=== PATIENT | male | born 1960 | race Caucasian/White ===

== ENCOUNTER 2017-08-27 21:37 | Emergency (ER) | payer MEDICAID, OTHER ==
[~2017-08-27] VITALS: Ht 182.9 cm; Wt 90.0 kg
[~2017-08-27 21:37] MED LIST: DOLU50TA PO; MECL-111 PO; ONDA4 PO; TRUVT PO
[2017-08-27 22:42] LABS: BASOPHILS % (AUTO) 0.8 % (0.0-2.0); EOSINOPHILS % (AUTO) 4.6 % (1.0-6.0); HEMATOCRIT 40.6 % (41-53); HEMOGLOBIN 13.3 g/dL (13.5-17.5); LYMPHOCYTES # (AUTO) 1.8 K/uL (1.0-4.8); LYMPHOCYTES % (AUTO) 41.6 % (22.0-44.0); MEAN CORPUSCULAR HEMOGLOBIN 25.9 pg (26.0-34.0); MEAN CORPUSCULAR HGB CONC 32.7 G/dL (31.0-37.0); MEAN CORPUSCULAR VOLUME 79 fL (80-100); MONOCYTES # (AUTO) 0.3 K/uL (0.1-1.0); MONOCYTES % (AUTO) 5.9 % (2.0-9.0); NEUTROPHILS # (AUTO) 2.1 K/uL (1.8-7.7); NEUTROPHILS % (AUTO) 47.1 % (40.0-70.0); PLATELET COUNT (AUTO) 230 K/uL (150-450); RED BLOOD CELL COUNT(AUTO) 5.12 MIL/uL (4.50-5.90); RED CELL DISTRIBUTION WIDTH 13.7 % (11.5-14.5)
[2017-08-27 22:54] LABS: CALCIUM, TOTAL 8.7 mg/dL (8.8-10.5); CREATININE 1.46 mg/dL (0.60-1.30); POTASSIUM 3.8 mmol/L (3.5-5.1)
[2017-08-27 22:59] LABS: ALBUMIN 3.3 g/dL (3.4-5.0); BILIRUBIN,TOTAL 0.2 mg/dL (0.1-1.0); TOTAL PROTEIN, SERUM 7.1 g/dL (6.4-8.2)
[2017-08-28] MEDS ORDERED: CefTRIAXone SODIUM 2 GM in DEXTROSE 5%-WATER 20 ML IV ONE (00:30)
[2017-08-28] MEDS ORDERED: DOXYCYCLINE 100 MG CAPSULE PO ONE (00:30)
[2017-08-28 02:26] VITALS: BP 145/89
== END 2017-08-28 02:30 | disposition home or self-care (01) ==
LOC: EMS 21:39
DX: L03.115 Cellulitis of right lower limb (principal); F17.210 Nicotine dependence, cigarettes, uncomplicated; Z88.0 Allergy status to penicillin
CPT/HCPCS: 36415; 80053; 83880; 85025; 87040; 93971; 96374; 99285; 99406; J0696; J7060

== ENCOUNTER 2018-02-02 04:25 | Emergency (ER) | payer OTHER ==
[~2018-02-02] VITALS: Ht 182.9 cm; Wt 86.4 kg
[2018-02-02] MEDS ORDERED: EMTR1TAB13 PO (04:45)
[2018-02-02] MEDS ORDERED: ONDANSETRON HCL 4 MG/2 ML VIAL IM ONE (06:30)
[2018-02-02] MEDS ORDERED: FentaNYL CITRATE-PF 100 MCG/2 ML VIAL IM ONE (06:30)
[2018-02-02 07:12] VITALS: BP 146/99
== END 2018-02-02 07:59 | disposition home or self-care (01) ==
LOC: EMS 04:26
DX: K62.3 Rectal prolapse (principal); K64.8 Other hemorrhoids; F17.210 Nicotine dependence, cigarettes, uncomplicated; Z88.0 Allergy status to penicillin
CPT/HCPCS: 96372; 99284; 99406; J2405; J3010

== ENCOUNTER 2019-05-22 16:34 | Emergency (ER) | payer MEDICAID, OTHER ==
[~2019-05-22] VITALS: Ht 182.9 cm; Wt 95.5 kg
[~2019-05-22 16:34] MED LIST changes: +EMTR1TAB13 PO; -ONDA4 PO; -TRUVT PO
[2019-05-22 18:26] LABS: BASOPHILS % (AUTO) 0.4 % (0.0-2.0); EOSINOPHILS % (AUTO) 8.4 % (1.0-6.0); HEMATOCRIT 43.8 % (41-53); HEMOGLOBIN 14.2 g/dL (13.5-17.5); LYMPHOCYTES # (AUTO) 2.2 K/uL (1.0-4.8); MEAN CORPUSCULAR HEMOGLOBIN 25.5 pg (26.0-34.0); MEAN CORPUSCULAR HGB CONC 32.4 G/dL (31.0-37.0); MEAN CORPUSCULAR VOLUME 79 fL (80-100); MONOCYTES # (AUTO) 0.5 K/uL (0.1-1.0); MONOCYTES % (AUTO) 10.5 % (2.0-9.0); NEUTROPHILS % (AUTO) 38.7 % (40.0-70.0); PLATELET COUNT (AUTO) 238 K/uL (150-450); RED BLOOD CELL COUNT(AUTO) 5.55 MIL/uL (4.50-5.90); RED CELL DISTRIBUTION WIDTH 13.6 % (11.5-14.5)
[2019-05-22 18:41] LABS: ANION GAP 7 mmol/L (8-16); CALCIUM, TOTAL 8.8 mg/dL (8.8-10.5); CARBON DIOXIDE 29 mmol/L (22-29); CHLORIDE 104 mmol/L (98-107); CREATININE 1.12 mg/dL (0.60-1.30); GLOMERULAR FILTR. RATE CALC > 60 mL/min (>60); GLUCOSE,RANDOM 88 mg/dL (70-110); POTASSIUM 4.5 mmol/L (3.5-5.1); SODIUM SERUM 140 mmol/L (136-145); UREA NITROGEN, BLOOD 11 mg/dL (7-18)
[2019-05-22 18:46] LABS: ALANINE AMINOTRANSFERASE 25 U/L (12-78); ALBUMIN 3.4 g/dL (3.4-5.0); ALKALINE PHOSPHATASE 62 U/L (46-116); ASPARTATE AMINOTRANSFERASE 18 U/L (15-37); BILIRUBIN,TOTAL 0.2 mg/dL (0.1-1.0); LIPASE 54 U/L (73-393); TOTAL PROTEIN, SERUM 8.4 g/dL (6.4-8.2)
[2019-05-22 18:48] LABS: APPEARANCE,URINE CLEAR (CLEAR); BILIRUBIN,URINE NEGATIVE (NEGATIVE); GLUCOSE, URINE (UA) NEGATIVE (NEGATIVE); KETONES,URINE NEGATIVE (NEGATIVE); LEUKOCYTE ESTERASE ,URINE NEGATIVE (NEGATIVE); NITRATE,URINE NEGATIVE (NEGATIVE); OCCULT BLOOD,URINE NEGATIVE (NEGATIVE); PROTEIN,URINE NEGATIVE (NEGATIVE); UROBILINOGEN,URINE 0.2 mg/dL (<=1.0)
[2019-05-22] MEDS ORDERED: KETOROLAC TROMETHAMINE 30 MG/ML VIAL IVP ONE (19:00)
[2019-05-22] MEDS ORDERED: KETOROLAC TROMETHAMINE 30 MG/ML VIAL IM ONE (19:45)
[2019-05-22 20:37] VITALS: BP 132/90
== END 2019-05-22 21:18 | disposition home or self-care (01) ==
LOC: EMS 16:34
DX: S39.012A Strain of muscle, fascia and tendon of lower back, initial encounter (principal); R39.15 Urgency of urination; F17.210 Nicotine dependence, cigarettes, uncomplicated; Z88.0 Allergy status to penicillin; Z79.899 Other long term (current) drug therapy; X50.9XXA Other and unspecified overexertion or strenuous movements or postures, initial encounter; Y93.89 Activity, other specified; Y92.89 Other specified places as the place of occurrence of the external cause; Y99.8 Other external cause status
CPT/HCPCS: 36415; 74176; 80053; 81003; 83690; 85025; 96372; 99284; J1885

== ENCOUNTER 2019-05-26 20:11 | Emergency (ER) | payer MEDICAID ==
[~2019-05-26] VITALS: Ht 182.9 cm; Wt 104.5 kg
[~2019-05-26 20:11] MED LIST changes: -EMTR1TAB13 PO; -MECL-111 PO
[2019-05-26] MEDS ORDERED: EMTR1TAB15 PO (20:43)
[2019-05-26 21:21] LABS: HEMATOCRIT 41.2 % (41-53); HEMOGLOBIN 13.8 g/dL (13.5-17.5); LYMPHOCYTES # (AUTO) 1.3 K/uL (1.0-4.8); LYMPHOCYTES % (AUTO) 31.4 % (22.0-44.0); MEAN CORPUSCULAR HEMOGLOBIN 26.5 pg (26.0-34.0); MEAN CORPUSCULAR HGB CONC 33.5 G/dL (31.0-37.0); MEAN CORPUSCULAR VOLUME 79 fL (80-100); MONOCYTES # (AUTO) 0.4 K/uL (0.1-1.0); MONOCYTES % (AUTO) 9.4 % (2.0-9.0); NEUTROPHILS # (AUTO) 2.2 K/uL (1.8-7.7); NEUTROPHILS % (AUTO) 54.2 % (40.0-70.0); PLATELET COUNT (AUTO) 243 K/uL (150-450); RED BLOOD CELL COUNT(AUTO) 5.21 MIL/uL (4.50-5.90)
[2019-05-26 21:25] LABS: APPEARANCE,URINE CLOUDY (CLEAR); BILIRUBIN,URINE NEGATIVE (NEGATIVE); GLUCOSE, URINE (UA) NEGATIVE (NEGATIVE); KETONES,URINE NEGATIVE (NEGATIVE); LEUKOCYTE ESTERASE ,URINE NEGATIVE (NEGATIVE); NITRATE,URINE NEGATIVE (NEGATIVE); OCCULT BLOOD,URINE SMALL (NEGATIVE); PROTEIN,URINE TRACE (NEGATIVE); UROBILINOGEN,URINE 0.2 mg/dL (<=1.0)
[2019-05-26 21:37] LABS: BACTERIA,URINE Rare /HPF (None Seen); SQUAMOUS EPITHELIAL CELL,UR Few /LPF (None Seen); WBC,URINE 0-2 /HPF (0-5)
[2019-05-26 21:41] LABS: ANION GAP 6 mmol/L (8-16); CARBON DIOXIDE 27 mmol/L (22-29); CHLORIDE 101 mmol/L (98-107); CREATININE 1.19 mg/dL (0.60-1.30); GLOMERULAR FILTR. RATE CALC > 60 mL/min (>60); GLUCOSE,RANDOM 109 mg/dL (70-110); POTASSIUM 4.2 mmol/L (3.5-5.1); SODIUM SERUM 134 mmol/L (136-145); UREA NITROGEN, BLOOD 16 mg/dL (7-18)
[2019-05-26 21:46] LABS: ALANINE AMINOTRANSFERASE 28 U/L (12-78); ALBUMIN 3.7 g/dL (3.4-5.0); ALKALINE PHOSPHATASE 61 U/L (46-116); ASPARTATE AMINOTRANSFERASE 27 U/L (15-37); BILIRUBIN,TOTAL 0.5 mg/dL (0.1-1.0); TOTAL PROTEIN, SERUM 8.8 g/dL (6.4-8.2)
[2019-05-26 22:38] VITALS: BP 141/100
[2019-05-26] MEDS ORDERED: ASPIRIN 325 MG TABLET PO ONE (23:00)
== END 2019-05-26 23:15 | disposition left against medical advice (07) ==
LOC: EMS 20:12
DX: R07.89 Other chest pain (principal); F17.210 Nicotine dependence, cigarettes, uncomplicated; Z88.0 Allergy status to penicillin; Z79.899 Other long term (current) drug therapy
CPT/HCPCS: 93005; 99406

== ENCOUNTER 2023-05-23 07:51 | Emergency (ER) | payer MEDICAID ==
[~2023-05-23] VITALS: Ht 182.9 cm; Wt 86.4 kg
[~2023-05-23 07:51] MED LIST changes: -DOLU50TA PO; +EMTR1TAB15 PO
[2023-05-23 07:52] VITALS: TEMP 98.7
[2023-05-23] MEDS ORDERED: HIV MEDICATION PO (07:59)
[2023-05-23 08:56] LABS: BASOPHILS % (AUTO) 0.1 % (0.0-2.0); EOSINOPHILS % (AUTO) 0.2 % (1.0-6.0); HEMATOCRIT 38.2 % (41-53); HEMOGLOBIN 12.6 g/dL (13.5-17.5); LYMPHOCYTES # (AUTO) 1.4 K/uL (1.0-4.8); LYMPHOCYTES % (AUTO) 16.6 % (22.0-44.0); MEAN CORPUSCULAR HEMOGLOBIN 26.1 pg (26.0-34.0); MEAN CORPUSCULAR HGB CONC 33.1 G/dL (31.0-37.0); MEAN CORPUSCULAR VOLUME 79 fL (80-100); MONOCYTES # (AUTO) 0.8 K/uL (0.1-1.0); MONOCYTES % (AUTO) 8.9 % (2.0-9.0); NEUTROPHILS # (AUTO) 6.4 K/uL (1.8-7.7); NEUTROPHILS % (AUTO) 74.2 % (40.0-70.0); PLATELET COUNT (AUTO) 206 K/uL (150-450); RED BLOOD CELL COUNT(AUTO) 4.84 MIL/uL (4.50-5.90); RED CELL DISTRIBUTION WIDTH 13.6 % (11.5-14.5); WHITE BLOOD COUNT (AUTO) 8.6 K/uL (4.5-11.0)
[2023-05-23 09:03] LABS: COVID AG,FIA SOURCE NASAL SWAB
[2023-05-23 09:06] LABS: SARS-COV2 (COVID) ANTIGEN,FIA Negative (Negative)
[2023-05-23 09:07] LABS: INFLUENZA TYPE A NEGATIVE FOR TYPE A (NEGATIVE); INFLUENZA TYPE B NEGATIVE FOR TYPE B (NEGATIVE)
[2023-05-23] MEDS ORDERED: KETOROLAC TROMETHAMINE 60 MG/2 ML VIAL IM ONE (10:00)
[2023-05-23] MEDS ORDERED: AZITHROMYCIN 500 MG TABLET PO ONE (10:00)
[2023-05-23 11:31] VITALS: BP 127/76; PULSE 87; RESP 18
[2023-05-23] MEDS ORDERED: IBUP-1492 PO (11:43)
[2023-05-23] MEDS ORDERED: AZIT250T9 PO (11:43)
== END 2023-05-23 12:19 | disposition home or self-care (01) ==
LOC: EMS 07:59
DX: R91.8 Other nonspecific abnormal finding of lung field (principal); R09.1 Pleurisy; F17.210 Nicotine dependence, cigarettes, uncomplicated; Z88.0 Allergy status to penicillin; Z20.822 Contact with and (suspected) exposure to COVID-19
CPT/HCPCS: 99284; 71045; 87426; 85025; 87804; 36415; 96372; J1885; Q9967

== ENCOUNTER → 2024-06-12 | Emergency (ER) | payer MEDICAID ==
[~2024-06-12] VITALS: Ht 183.5 cm; Wt 94.5 kg
[~2024-06-12] MED LIST changes: +DOXY-354 PO; +HIV MEDICATION PO; +IBUP-1492 PO; +htn PO
[2024-06-12 09:41] VITALS: TEMP 98.4
[2024-06-12] MEDS: DOXYCYCLINE HYCLATE 100 MG TABLET PO ONE (10:57)
[2024-06-12 11:48] VITALS: BP 115/75; PULSE 85; RESP 18; O2SAT 100
== END | disposition home or self-care (01) ==
LOC: EMS 09:34
DX: L03.116 Cellulitis of left lower limb (principal); M79.652 Pain in left thigh; Z88.0 Allergy status to penicillin; Z79.624 Long term (current) use of inhibitors of nucleotide synthesis
CPT/HCPCS: 99284; Z7502; Z7610

== ENCOUNTER 2024-07-24 08:07 | Emergency (ER) | payer MEDICAID ==
[~2024-07-24] VITALS: Ht 180.3 cm; Wt 97.7 kg
[~2024-07-24 08:07] MED LIST changes: -IBUP-1492 PO
[2024-07-24 08:28] LABS: COVID AG,FIA SOURCE NASAL SWAB
[2024-07-24 09:07] LABS: INFLUENZA TYPE B NEGATIVE FOR TYPE B (NEGATIVE); SARS-COV2 (COVID) ANTIGEN,FIA Negative (Negative)
[2024-07-24] MEDS: PredniSONE 20 MG TABLET PO ONE (09:10)
[2024-07-24] MEDS: HYDROCODONE/ACETAMINOPHEN 5-325 MG TABLET PO ONE (09:10)
[2024-07-24] MEDS ORDERED: 0.9% SODIUM CHLORIDE 5 ML NEB SOLUTION NEB ONE (09:25)
[2024-07-24 09:30] VITALS: PULSE 73; RESP 20; O2SAT 96
[2024-07-24] MEDS: IPRATROPIUM BROMIDE 0.5 MG/2.5 ML NEB SOLUTION NEB ONE (09:30)
[2024-07-24] MEDS: ALBUTEROL SULFATE 2.5 MG/0.5 ML 5 ML NEB SOLUTION NEB ONE (09:30)
[2024-07-24 09:33] LABS: INFLUENZA TYPE A POSITIVE FOR TYPE A (NEGATIVE)
[2024-07-24 10:45] VITALS: PULSE 75; RESP 20; O2SAT 100
[2024-07-24] MEDS: GuaiFENesin [SUGAR-FREE] 200 MG/10 ML SOLUTION UDCUP PO ONE (11:49)
[2024-07-24 11:56] LABS: BASOPHILS % (AUTO) 0.4 % (0.0-2.0); EOSINOPHILS % (AUTO) 0.3 % (1.0-6.0); HEMATOCRIT 43.7 % (41-53); HEMOGLOBIN 13.9 g/dL (13.5-17.5); LYMPHOCYTES # (AUTO) 1.2 K/uL (1.0-4.8); LYMPHOCYTES % (AUTO) 26.3 % (22.0-44.0); MEAN CORPUSCULAR HEMOGLOBIN 25.8 pg (26.0-34.0); MEAN CORPUSCULAR HGB CONC 31.7 G/dL (31.0-37.0); MEAN CORPUSCULAR VOLUME 81 fL (80-100); MONOCYTES # (AUTO) 0.1 K/uL (0.1-1.0); MONOCYTES % (AUTO) 3.1 % (2.0-9.0); NEUTROPHILS # (AUTO) 3.1 K/uL (1.8-7.7); NEUTROPHILS % (AUTO) 69.9 % (40.0-70.0); PLATELET COUNT (AUTO) 180 K/uL (150-450); RED BLOOD CELL COUNT(AUTO) 5.38 MIL/uL (4.50-5.90); RED CELL DISTRIBUTION WIDTH 14.6 % (11.5-14.5); WHITE BLOOD COUNT (AUTO) 4.4 K/uL (4.5-11.0)
[2024-07-24 12:30] VITALS: BP 122/78; PULSE 71; RESP 14; TEMP 98.2; O2SAT 95
[2024-07-24 12:34] LABS: TROPONIN I-HIGH SENSITIVITY 45 ng/L (<76)
[2024-07-24 12:43] LABS: CALCIUM, TOTAL 8.1 mg/dL (8.8-10.5); CREATININE 1.68 mg/dL (0.60-1.30)
[2024-07-24] MEDS ORDERED: HYDR-4062 PO (12:44)
[2024-07-24] MEDS ORDERED: GUAIFDM PO (12:44)
[2024-07-24] MEDS ORDERED: ALBU18HF12 IH (12:44)
[2024-07-24] MEDS ORDERED: PRED-554 PO (12:44)
== END 2024-07-24 13:06 | disposition home or self-care (01) ==
LOC: EMS 08:08
DX: J18.9 Pneumonia, unspecified organism (principal); J06.9 Acute upper respiratory infection, unspecified; N28.9 Disorder of kidney and ureter, unspecified; I10 Essential (primary) hypertension; R07.89 Other chest pain; F17.210 Nicotine dependence, cigarettes, uncomplicated; Z79.624 Long term (current) use of inhibitors of nucleotide synthesis; Z88.0 Allergy status to penicillin; Z20.822 Contact with and (suspected) exposure to COVID-19
CPT/HCPCS: 99285; 71045; 87426; 80048; 83880; 84484; 85025; 87804; 36415; 94644; 93005; J7512

== ENCOUNTER 2024-11-24 09:28 | Inpatient (IN) | payer MEDICAID ==
[~2024-11-24] VITALS: Ht 182.9 cm; Wt 105.1 kg
[~2024-11-24 09:28] MED LIST changes: +ALBU18HF12 IH; +GUAIFDM PO; +HYDR-4062 PO; +PRED-554 PO
[2024-11-24] MEDS ORDERED: AMLO-257 PO (10:42)
[2024-11-24] MEDS ORDERED: DOLU50TA PO (10:42)
[2024-11-24] MEDS ORDERED: OMEP-148 PO (10:42)
[2024-11-24] MEDS ORDERED: LISI-659 PO (10:42)
[2024-11-24] MEDS ORDERED: EMTR1TAB13 PO (10:42)
[2024-11-24] MEDS: MECLIZINE HCL 25 MG TABLET PO ONE ×2 (10:44→14:35)
[2024-11-24 11:25] LABS: BASOPHILS % (AUTO) 0.8 % (0.0-2.0); EOSINOPHILS % (AUTO) 2.7 % (1.0-6.0); HEMATOCRIT 46.4 % (41-53); HEMOGLOBIN 14.8 g/dL (13.5-17.5); LYMPHOCYTES # (AUTO) 2.3 K/uL (1.0-4.8); LYMPHOCYTES % (AUTO) 39.6 % (22.0-44.0); MEAN CORPUSCULAR HEMOGLOBIN 25.9 pg (26.0-34.0); MEAN CORPUSCULAR HGB CONC 31.9 G/dL (31.0-37.0); MEAN CORPUSCULAR VOLUME 81 fL (80-100); MONOCYTES # (AUTO) 0.3 K/uL (0.1-1.0); MONOCYTES % (AUTO) 6.1 % (2.0-9.0); NEUTROPHILS # (AUTO) 2.9 K/uL (1.8-7.7); NEUTROPHILS % (AUTO) 50.8 % (40.0-70.0); PLATELET COUNT (AUTO) 242 K/uL (150-450); RED BLOOD CELL COUNT(AUTO) 5.71 MIL/uL (4.50-5.90); RED CELL DISTRIBUTION WIDTH 14.9 % (11.5-14.5); WHITE BLOOD COUNT (AUTO) 5.7 K/uL (4.5-11.0)
[2024-11-24 11:35] LABS: CREATININE 1.53 mg/dL (0.60-1.30); POTASSIUM 3.6 mmol/L (3.5-5.1)
[2024-11-24] MEDS: SODIUM CHLORIDE 0.9% 500 ML IV ONE (12:05)
[2024-11-24] MEDS ORDERED: ALBUTEROL SULFATE HFA 90 MCG/PUFF 8 GM INHALER IH PRN (15:15)
[2024-11-24] MEDS: SODIUM CHLORIDE 0.9% 1,000 ML IV ONE ×2 (15:35)
[2024-11-24 16:53] VITALS: BP 125/52; PULSE 68; RESP 18; TEMP 97.9; O2SAT 97
[2024-11-24 19:23] LABS: ALCOHOL, URINE DRUG SCREEN NEGATIVE (NEGATIVE); AMPHET/METH SCREEN,URINE NEGATIVE (NEGATIVE); BARBITURATE SCREEN, URINE NEGATIVE (NEGATIVE); BENZODIAZEPINES SCREEN,URINE NEGATIVE (NEGATIVE); CANNABINOID SCREEN,URINE NEGATIVE (NEGATIVE); COCAINE SCREEN,URINE NEGATIVE (NEGATIVE); METHADONE SCREEN, URINE NEGATIVE (NEGATIVE); OPIATE SCREEN,URINE NEGATIVE (NEGATIVE); PHENCYCLIDINE SCREEN,URINE NEGATIVE (NEGATIVE)
[2024-11-24] MEDS: MECLIZINE HCL 12.5 MG TABLET PO PRN (20:09)
[2024-11-24 21:35] VITALS: BP 120/72; PULSE 67; RESP 18; TEMP 97.7; O2SAT 98
[2024-11-25 00:13] VITALS: BP 102/71; PULSE 72; RESP 17; TEMP 97.3; O2SAT 100
[2024-11-25 04:00] VITALS: BP 110/60; PULSE 68; RESP 16; TEMP 97.4; O2SAT 99
[2024-11-25 07:29] LABS: CALCIUM, TOTAL 8.3 mg/dL (8.8-10.5); CREATININE 1.42 mg/dL (0.60-1.30)
[2024-11-25 07:30] LABS: BASOPHILS % (AUTO) 2.2 % (0.0-2.0); EOSINOPHILS % (AUTO) 4.7 % (1.0-6.0); HEMATOCRIT 40.1 % (41-53); HEMOGLOBIN 12.9 g/dL (13.5-17.5); LYMPHOCYTES # (AUTO) 2.4 K/uL (1.0-4.8); LYMPHOCYTES % (AUTO) 41.8 % (22.0-44.0); MEAN CORPUSCULAR HEMOGLOBIN 25.6 pg (26.0-34.0); MEAN CORPUSCULAR VOLUME 80 fL (80-100); MONOCYTES # (AUTO) 0.3 K/uL (0.1-1.0); MONOCYTES % (AUTO) 5.3 % (2.0-9.0); NEUTROPHILS # (AUTO) 2.6 K/uL (1.8-7.7); PLATELET COUNT (AUTO) 210 K/uL (150-450); RED BLOOD CELL COUNT(AUTO) 5.02 MIL/uL (4.50-5.90); RED CELL DISTRIBUTION WIDTH 14.3 % (11.5-14.5); WHITE BLOOD COUNT (AUTO) 5.7 K/uL (4.5-11.0)
[2024-11-25 07:40] VITALS: BP 121/86; PULSE 67; RESP 17; TEMP 98.4; O2SAT 98
[2024-11-25] MEDS: DOLUTEGRAVIR SODIUM 50 MG TABLET PO SCH (08:24)
[2024-11-25] MEDS: AmLODIPine BESYLATE 10 MG TABLET PO SCH (08:24)
[2024-11-25] MEDS: EMTRICITABINE/TENOFOV ALAFENAM 200-25 MG TABLET PO SCH (08:24)
[2024-11-25] MEDS: NYSTATIN 15 GM POWDER BOTTLE TP SCH (12:03)
[2024-11-25] MEDS: SODIUM CHLORIDE 0.9% 1,000 ML IV ONE (12:04)
[2024-11-25] MEDS: OMEPRAZOLE 20 MG CAPSULE PO SCH (14:30)
[2024-11-25] MEDS ORDERED: GADOTERATE MEGLUMINE 10 MMOL/20 ML VIAL IVP ONE (15:08)
[2024-11-25] MEDS: DiphenhydrAMINE HCL 25 MG CAPSULE PO ONE (18:19)
[2024-11-26] VITALS (7 sets, daily range): BP systolic 114–139; BP diastolic 63–89; PULSE 66–81; RESP 18–20; TEMP 97.5–98.4; O2SAT 97–98
[2024-11-26 06:33] LABS: BASOPHILS % (AUTO) 0.6 % (0.0-2.0); HEMATOCRIT 38.7 % (41-53); HEMOGLOBIN 12.8 g/dL (13.5-17.5); LYMPHOCYTES # (AUTO) 1.6 K/uL (1.0-4.8); LYMPHOCYTES % (AUTO) 35.2 % (22.0-44.0); MEAN CORPUSCULAR HEMOGLOBIN 25.9 pg (26.0-34.0); MEAN CORPUSCULAR HGB CONC 33.1 G/dL (31.0-37.0); MEAN CORPUSCULAR VOLUME 78 fL (80-100); MONOCYTES # (AUTO) 0.4 K/uL (0.1-1.0); MONOCYTES % (AUTO) 8.6 % (2.0-9.0); NEUTROPHILS # (AUTO) 2.3 K/uL (1.8-7.7); NEUTROPHILS % (AUTO) 51.6 % (40.0-70.0); PLATELET COUNT (AUTO) 205 K/uL (150-450); RED BLOOD CELL COUNT(AUTO) 4.93 MIL/uL (4.50-5.90); RED CELL DISTRIBUTION WIDTH 14.2 % (11.5-14.5); WHITE BLOOD COUNT (AUTO) 4.4 K/uL (4.5-11.0)
[2024-11-26 06:57] LABS: CALCIUM, TOTAL 8.6 mg/dL (8.8-10.5); CREATININE 1.25 mg/dL (0.60-1.30); POTASSIUM 3.7 mmol/L (3.5-5.1)
[2024-11-26 10:26] LABS: CHOL/HDL RATIO 3.9 (4.2-7.3)
[2024-11-26 10:28] LABS: HEMOGLOBIN A1C 5.4 % (3.8-5.6)
[2024-11-26] MEDS: DOXYCYCLINE HYCLATE 100 MG TABLET PO SCH (11:02)
[2024-11-26] MEDS: ASPIRIN 81 MG CHEWABLE TABLET PO SCH (11:02)
[2024-11-27 03:39] VITALS: BP 126/89; PULSE 65; RESP 18; TEMP 97.5; O2SAT 97
[2024-11-27 07:17] LABS: BASOPHILS % (AUTO) 0.6 % (0.0-2.0); EOSINOPHILS % (AUTO) 6.3 % (1.0-6.0); HEMATOCRIT 37.7 % (41-53); HEMOGLOBIN 12.6 g/dL (13.5-17.5); LYMPHOCYTES # (AUTO) 2.2 K/uL (1.0-4.8); LYMPHOCYTES % (AUTO) 42.6 % (22.0-44.0); MEAN CORPUSCULAR HEMOGLOBIN 26.2 pg (26.0-34.0); MEAN CORPUSCULAR HGB CONC 33.5 G/dL (31.0-37.0); MEAN CORPUSCULAR VOLUME 78 fL (80-100); MONOCYTES # (AUTO) 0.5 K/uL (0.1-1.0); MONOCYTES % (AUTO) 9.9 % (2.0-9.0); NEUTROPHILS # (AUTO) 2.1 K/uL (1.8-7.7); NEUTROPHILS % (AUTO) 40.6 % (40.0-70.0); PLATELET COUNT (AUTO) 205 K/uL (150-450); RED BLOOD CELL COUNT(AUTO) 4.81 MIL/uL (4.50-5.90); RED CELL DISTRIBUTION WIDTH 14.4 % (11.5-14.5); WHITE BLOOD COUNT (AUTO) 5.2 K/uL (4.5-11.0)
[2024-11-27 07:24] LABS: CALCIUM, TOTAL 8.6 mg/dL (8.8-10.5); CREATININE 1.27 mg/dL (0.60-1.30); POTASSIUM 4.1 mmol/L (3.5-5.1)
[2024-11-27 07:58] VITALS: BP 128/83; PULSE 68; RESP 18; TEMP 97.8; O2SAT 98
[2024-11-27] MEDS ORDERED: AMLO-258 PO (10:43)
[2024-11-27] MEDS ORDERED: DOXY-354 PO (10:43)
[2024-11-27] MEDS ORDERED: ASPI-1450 PO (10:43)
[2024-11-27] MEDS ORDERED: MECL-226 PO (10:43)
[2024-11-27] MEDS ORDERED: NYST15PO3 TP (10:43)
[2024-11-27 12:08] VITALS: BP 118/80; PULSE 77; RESP 19; TEMP 98.2; O2SAT 97
[2024-11-27 15:20] VITALS: BP 113/75; PULSE 68; RESP 19; TEMP 98.2; O2SAT 97
[2024-11-27] MEDS ORDERED: DiphenhydrAMINE HCL 25 MG CAPSULE PO PRN ×2 (16:15→16:45)
[2024-11-27] MEDS ORDERED: PredniSONE 10 MG TABLET PO PRN (16:15)
[2024-11-27] MEDS: CLOPIDOGREL BISULFATE 75 MG TABLET PO SCH (16:31)
[2024-11-27] MEDS: ATORVASTATIN CALCIUM 40 MG TABLET PO SCH (16:31)
[2024-11-27 20:00] VITALS: BP 124/79; PULSE 63; RESP 20; TEMP 98.4; O2SAT 98
[2024-11-27 23:43] LABS: TROPONIN I-HIGH SENSITIVITY 9 ng/L (<76)
[2024-11-28] VITALS: BP 110/72; PULSE 61; RESP 20; TEMP 98.2; O2SAT 98
[2024-11-28] MEDS: PredniSONE 20 MG TABLET PO PRN
[2024-11-28 03:15] LABS: TROPONIN I-HIGH SENSITIVITY 11 ng/L (<76)
[2024-11-28 04:00] VITALS: BP 136/90; PULSE 69; RESP 19; TEMP 98.1; O2SAT 98
[2024-11-28 06:26] LABS: BASOPHILS % (AUTO) 0.5 % (0.0-2.0); EOSINOPHILS % (AUTO) 1.7 % (1.0-6.0); HEMATOCRIT 39.9 % (41-53); LYMPHOCYTES # (AUTO) 1.1 K/uL (1.0-4.8); LYMPHOCYTES % (AUTO) 29.2 % (22.0-44.0); MEAN CORPUSCULAR HEMOGLOBIN 25.7 pg (26.0-34.0); MEAN CORPUSCULAR HGB CONC 32.5 G/dL (31.0-37.0); MEAN CORPUSCULAR VOLUME 79 fL (80-100); MONOCYTES # (AUTO) 0.1 K/uL (0.1-1.0); MONOCYTES % (AUTO) 3.3 % (2.0-9.0); NEUTROPHILS # (AUTO) 2.6 K/uL (1.8-7.7); NEUTROPHILS % (AUTO) 65.3 % (40.0-70.0); PLATELET COUNT (AUTO) 233 K/uL (150-450); RED BLOOD CELL COUNT(AUTO) 5.05 MIL/uL (4.50-5.90); RED CELL DISTRIBUTION WIDTH 14.4 % (11.5-14.5); WHITE BLOOD COUNT (AUTO) 3.9 K/uL (4.5-11.0)
[2024-11-28 06:36] LABS: CALCIUM, TOTAL 9.2 mg/dL (8.8-10.5); CREATININE 1.27 mg/dL (0.60-1.30); MAGNESIUM 1.8 mg/dL (1.80-2.40); POTASSIUM 4.8 mmol/L (3.5-5.1)
[2024-11-28 07:12] VITALS: BP 125/83; PULSE 70; RESP 18; TEMP 97.7; O2SAT 97
[2024-11-28] MEDS ORDERED: IOHEXOL 350 MG/ML 100 ML VIAL ONE (07:57)
[2024-11-28] MEDS ORDERED: SODIUM CHLORIDE 0.9% 100 ML ONE (07:58)
[2024-11-28] MEDS: DiphenhydrAMINE HCL 50 MG CAPSULE PO PRN (09:33)
[2024-11-28 10:06] LABS: TROPONIN I-HIGH SENSITIVITY 8 ng/L (<76)
[2024-11-28] MEDS: PANTOPRAZOLE SODIUM 40 MG DR TABLET PO SCH (11:27)
[2024-11-28 11:50] VITALS: BP 152/97; PULSE 93; RESP 20; TEMP 97.3; O2SAT 100
[2024-11-28 16:21] VITALS: BP 155/84; PULSE 100; RESP 18; TEMP 97.5; O2SAT 97
[2024-11-28 20:19] VITALS: BP 130/84; PULSE 78; RESP 18; TEMP 97.9; O2SAT 98
[2024-11-29 01:00] VITALS: BP 124/67; PULSE 89; RESP 18; TEMP 98.2; O2SAT 97
[2024-11-29 05:17] VITALS: BP 113/78; PULSE 66; RESP 18; TEMP 98.4; O2SAT 98
[2024-11-29 06:36] LABS: BASOPHILS % (AUTO) 0.1 % (0.0-2.0); EOSINOPHILS % (AUTO) 0.1 % (1.0-6.0); HEMATOCRIT 38.1 % (41-53); HEMOGLOBIN 12.3 g/dL (13.5-17.5); LYMPHOCYTES # (AUTO) 3.2 K/uL (1.0-4.8); MEAN CORPUSCULAR HEMOGLOBIN 25.4 pg (26.0-34.0); MEAN CORPUSCULAR HGB CONC 32.2 G/dL (31.0-37.0); MEAN CORPUSCULAR VOLUME 79 fL (80-100); MONOCYTES # (AUTO) 0.8 K/uL (0.1-1.0); MONOCYTES % (AUTO) 5.8 % (2.0-9.0); NEUTROPHILS # (AUTO) 9.2 K/uL (1.8-7.7); PLATELET COUNT (AUTO) 261 K/uL (150-450); RED BLOOD CELL COUNT(AUTO) 4.84 MIL/uL (4.50-5.90); RED CELL DISTRIBUTION WIDTH 14.2 % (11.5-14.5); WHITE BLOOD COUNT (AUTO) 13.2 K/uL (4.5-11.0)
[2024-11-29 06:48] LABS: CREATININE 1.38 mg/dL (0.60-1.30); POTASSIUM 3.6 mmol/L (3.5-5.1)
[2024-11-29 07:41] VITALS: BP 122/93; PULSE 69; RESP 18; TEMP 97.5; O2SAT 98
[2024-11-29 11:35] VITALS: BP 110/80; PULSE 61; RESP 18; TEMP 97.5; O2SAT 97
[2024-11-29] MEDS: SODIUM CHLORIDE 0.9% 1,000 ML IV SCH (12:40)
[2024-11-29 17:04] VITALS: BP 126/86; PULSE 73; RESP 18; TEMP 97.5; O2SAT 99
[2024-11-29 19:47] VITALS: BP 130/85; PULSE 75; RESP 19; TEMP 97.7; O2SAT 98
[2024-11-30] VITALS (7 sets, daily range): BP systolic 102–138; BP diastolic 70–89; PULSE 68–74; RESP 16–19; TEMP 97.9–98.4; O2SAT 97–100
[2024-11-30 07:04] LABS: BASOPHILS % (AUTO) 0.6 % (0.0-2.0); EOSINOPHILS % (AUTO) 1.4 % (1.0-6.0); HEMATOCRIT 37.9 % (41-53); HEMOGLOBIN 12.7 g/dL (13.5-17.5); LYMPHOCYTES # (AUTO) 1.7 K/uL (1.0-4.8); LYMPHOCYTES % (AUTO) 24.8 % (22.0-44.0); MEAN CORPUSCULAR HEMOGLOBIN 26.2 pg (26.0-34.0); MEAN CORPUSCULAR HGB CONC 33.5 G/dL (31.0-37.0); MEAN CORPUSCULAR VOLUME 78 fL (80-100); MONOCYTES # (AUTO) 0.4 K/uL (0.1-1.0); NEUTROPHILS # (AUTO) 4.5 K/uL (1.8-7.7); NEUTROPHILS % (AUTO) 67.2 % (40.0-70.0); PLATELET COUNT (AUTO) 230 K/uL (150-450); RED BLOOD CELL COUNT(AUTO) 4.86 MIL/uL (4.50-5.90); RED CELL DISTRIBUTION WIDTH 14.5 % (11.5-14.5); WHITE BLOOD COUNT (AUTO) 6.7 K/uL (4.5-11.0)
[2024-11-30 07:13] LABS: CALCIUM, TOTAL 8.1 mg/dL (8.8-10.5); CREATININE 1.22 mg/dL (0.60-1.30); POTASSIUM 3.8 mmol/L (3.5-5.1)
[2024-11-30] MEDS ORDERED: BENZOCAINE 20% 50 MCG/SPRAY 57 GM ONE (07:34)
[2024-11-30] MEDS ORDERED: FentaNYL CITRATE PF 100 MCG/2 ML VIAL ONE (09:08)
[2024-11-30] MEDS ORDERED: MIDAZOLAM HCL 2 MG/2 ML VIAL ONE (09:08)
[2024-11-30] MEDS: FentaNYL CITRATE PF 100 MCG/2 ML VIAL IVP ONE ×2 (09:32→09:45)
[2024-11-30] MEDS: MIDAZOLAM HCL 2 MG/2 ML VIAL IVP ONE ×2 (09:32→09:44)
[2024-11-30] MEDS ORDERED: PANT-31 PO (10:39)
[2024-11-30] MEDS ORDERED: CLOP75TA83 PO (10:39)
[2024-11-30] MEDS ORDERED: ATOR40TA71 PO (10:39)
== END 2024-11-30 12:22 | disposition home or self-care (01) | DRG 890 ==
LOC: EMS 09:47 → EDH 14:54 → 5S 16:40
PROVIDERS: ADMIT Internal Medicine; ATTEND Internal Medicine
DX: I63.49 Cerebral infarction due to embolism of other cerebral artery (principal); B20 Human immunodeficiency virus [HIV] disease; R65.11 Systemic inflammatory response syndrome (SIRS) of non-infectious origin with acute organ dysfunction; N17.9 Acute kidney failure, unspecified; G90.89 Other disorders of autonomic nervous system; L02.92 Furuncle, unspecified; H81.13 Benign paroxysmal vertigo, bilateral; E78.5 Hyperlipidemia, unspecified; I12.9 Hypertensive chronic kidney disease with stage 1 through stage 4 chronic kidney disease, or unspecified chronic kidney disease; N18.30 Chronic kidney disease, stage 3 unspecified; J44.89 Other specified chronic obstructive pulmonary disease; F17.210 Nicotine dependence, cigarettes, uncomplicated; Z88.0 Allergy status to penicillin; Z91.128 Patient's intentional underdosing of medication regimen for other reason
CPT/HCPCS: 70450; 70553; 71045; 74177; 80048; 80061; 80307; 83036; 83735; 84484; 85025; 93005; 93306; 93312; 93970; 96360; 96361; 97116; 97162; 99285; J2250; J3010; J7030; J7040; J7050; 36415-L1; 36415-TC

== ENCOUNTER 2025-01-29 12:06 | Emergency (ER) | payer MEDICAID ==
[~2025-01-29] VITALS: Ht 182.9 cm; Wt 93.2 kg
[~2025-01-29 12:06] MED LIST changes: +AMLO-258 PO; +ASPI-1450 PO; +ATOR40TA71 PO; +CLOP75TA83 PO; +DOLU50TA PO; +EMTR1TAB13 PO; -EMTR1TAB15 PO; -GUAIFDM PO; -HIV MEDICATION PO; -HYDR-4062 PO; +MECL-226 PO; +NYST15PO3 TP; +PANT-31 PO; -PRED-554 PO; -htn PO
[2025-01-29 12:12] VITALS: BP 137/92; PULSE 84; RESP 18; TEMP 97.9; O2SAT 99
[2025-01-29] MEDS: DOXYCYCLINE HYCLATE 100 MG TABLET PO ONE (13:05)
[2025-01-29] MEDS ORDERED: DOXY-354 PO (13:13)
== END 2025-01-29 13:23 | disposition home or self-care (01) ==
LOC: EMS 12:06
DX: L02.213 Cutaneous abscess of chest wall (principal); I10 Essential (primary) hypertension; Z88.0 Allergy status to penicillin; Z79.02 Long term (current) use of antithrombotics/antiplatelets; Z79.624 Long term (current) use of inhibitors of nucleotide synthesis; Z79.82 Long term (current) use of aspirin; Z79.899 Other long term (current) drug therapy
CPT/HCPCS: 99283